=== PATIENT | male | born 1965 | race Caucasian/White ===

== ENCOUNTER 2018-06-16 10:48 | Emergency (ER) | payer MEDICAID ==
[~2018-06-16] VITALS: Ht 170.2 cm; Wt 68.2 kg
[2018-06-16 11:13] VITALS: Ht 170.2 cm; Wt 68.2 kg
[2018-06-16] MEDS ORDERED: KLONOPIN1 MG (11:15)
[2018-06-16] MEDS ORDERED: BUPRENORPHINE HC8 MG SL (11:16)
[2018-06-16 18:40] VITALS: BP 127/76
== END 2018-06-16 18:40 | disposition home or self-care (01) ==
LOC: D.ER 10:48
DX: J40 Bronchitis, not specified as acute or chronic (principal); K02.9 Dental caries, unspecified